=== PATIENT | female | born 1990 | race Caucasian/White ===

== ENCOUNTER 2020-06-03 00:45 | Emergency (ER) | payer BC ==
[2020-06-03] MEDS ORDERED: fentaNYL 50 MCG/ML SDV IVPUSH ONE ×2 (00:55→02:22)
[2020-06-03] MEDS ORDERED: Sodium Chloride 0.9% 10 ML Syringe FLUSH PRN (00:56)
[2020-06-03] MEDS ORDERED: Sodium Chloride 0.9% 2.5 ML Syringe FLUSH PRN (00:56)
[2020-06-03] MEDS ORDERED: Clindamycin Phosphate in D5W 600 MG in Premix Bag 1 BAG IV ONE ×2 (00:57)
[2020-06-03] MEDS ORDERED: fentaNYL 50 MCG/ML SDV ONE (01:06)
[2020-06-03] MEDS ORDERED: Clindamycin Phosphate in D5W 50 ML ONE (01:06)
[2020-06-03 01:10] LABS: BLOOD UREA NITROGEN,BUN 8 mg/dL (7.0-18.0); CARBON DIOXIDE,CO2 20.8 mmol/L (21.0-32.0); CHLORIDE,CL 101 mmol/L (98-107); GLUCOSE RANDOM 107 mg/dL (74-106); SODIUM,NA 136 mmol/L (136-145)
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
--- NOTE | 2020-06-03 02:04 | CR ---
INDICATION: Fall, ankle pain TECHNIQUE: Ankle radiograph 3 views right COMPARISON: None FINDINGS: Bone: No acute fractures or aggressive bone lesions are identified. Joint: The ankle mortise joint and the visualized hindfoot joints are unremarkable in appearance. No significant ankle effusion is seen. Soft tissue: The Kager fat pad and the Achilles` tendon is normal in appearance. No radiopaque foreign bodies are seen. IMPRESSION: 1. No acute osseous injuries or abnormalities are noted. Dictated by: Eliceo Grider MD @ 06/03/2020 02:04:04 (Electronically Signed)
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
== END 2020-06-03 02:50 ==
LOC: MW.ED 00:45
DX: O9A.213 Injury, poisoning and certain other consequences of external causes complicating pregnancy, third trimester (principal); S02.412B LeFort II fracture, initial encounter for open fracture; S02.80XB Fracture of other specified skull and facial bones, unspecified side, initial encounter for open fracture; O99.613 Diseases of the digestive system complicating pregnancy, third trimester; K21.9 Gastro-esophageal reflux disease without esophagitis; O99.343 Other mental disorders complicating pregnancy, third trimester; F32.9 Major depressive disorder, single episode, unspecified; Z87.891 Personal history of nicotine dependence; Z88.5 Allergy status to narcotic agent; Z79.899 Other long term (current) drug therapy; W39.XXXA Discharge of firework, initial encounter; Z3A.32 32 weeks gestation of pregnancy
CPT/HCPCS: 36415; 70450; 70486; 72125; 73610; 80048; 85025; 85610; 86850; 86900; 86901; 96365; 96375; 96376; 99285; J3010; S0077; J3490